=== PATIENT | female | born 1980 | race Caucasian/White ===

== ENCOUNTER 2017-03-31 14:21 | Emergency (ER) | payer SELFPAY ==
[2017-03-31 14:50] VITALS: BP 118/71
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
== END 2017-03-31 16:15 | disposition home or self-care (01) ==
LOC: UCEAST 14:21
DX: S16.1XXA Strain of muscle, fascia and tendon at neck level, initial encounter (principal); V43.52XA Car driver injured in collision with other type car in traffic accident, initial encounter; Y92.410 Unspecified street and highway as the place of occurrence of the external cause
CPT/HCPCS: 72050; 99212; G0463

== ENCOUNTER 2018-01-14 11:44 | Emergency (ER) | payer BC, OTHER ==
[2018-01-14 12:19] VITALS: BP 122/75
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
[2018-01-14] MEDS ORDERED: NS 0.9% 1000 ML* 1,000 ML IV ONE (13:18)
== END 2018-01-14 13:50 | disposition short-term general hospital (02) ==
LOC: UCEAST 11:44
DX: R20.2 Paresthesia of skin (principal)
CPT/HCPCS: 99213; G0463

== ENCOUNTER 2018-01-14 14:04 | Emergency (ER) | payer BC ==
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
--- NOTE | 2018-01-14 16:48 | RAD ---
HISTORY: left face, arm, and leg numbness- evaluate for dem COMPARISONS: None TECHNIQUE: The following sequences were obtained of the cervical spine: Sagittal T1- and T2-weighted images, sagittal STIR images, axial T2 and gradient echo images. FINDINGS: BRAIN AND SPINAL CORD: The visualized spinal cord is normal in caliber, position, and signal intensity. The visualized portion of the brain is unremarkable. The cerebellar tonsils are normal in position. ALIGNMENT: There is straightening of the normal cervical lordosis. The alignment is otherwise normal. VERTEBRAL BODIES: The bones are normal in signal intensity. JOINTS: There is no subluxation or dislocation. MUSCULATURE: Unremarkable. INTERVERTEBRAL DISCS: There is diffuse loss of intervertebral disc height and T2 signal throughout the cervical spine with relative sparing of C7-T1.. AXIAL IMAGES: C2-C3: There is no disc herniation, spinal stenosis, or neuroforaminal narrowing. C3-C4: There is no disc herniation, spinal stenosis, or neuroforaminal narrowing. C4-C5: There is no disc herniation, spinal stenosis, or neuroforaminal narrowing. C5-C6: There is broad-based disc osteophyte complex. There is no significant neural foraminal narrowing of central canal stenosis. C6-C7: There is right paracentral disc protrusion measuring 0.3 cm in depth. There is mild bilateral neuroforaminal narrowing. There is no significant central canal stenosis. C7-T1: There is mild disc bulge. There is no significant neural foraminal narrowing of central canal stenosis. SOFT TISSUES: The visualized soft tissues of the neck are unremarkable. OTHER: Normal flow-voids are noted within the vertebral arteries bilaterally on the gradient echo images. IMPRESSION: STRAIGHTENING OF THE CERVICAL LORDOSIS. MILD DEGENERATIVE DISC DISEASE AND OSTEOARTHRITIS. THERE IS NO SIGNIFICANT CENTRAL CANAL STENOSIS. THERE IS NO BONE OR SOFT TISSUE EDEMA TO SUGGEST ACUTE INJURY
[2018-01-14 17:01] LABS: ABS Basophils 0 10^3/ul (0-0.2); ABS Eosinophils 0.1 10^3/ul (0-0.6); ABS Lymphocytes 1.4 10^3/ul (1.0-4.8); ABS Monocytes 0.3 10^3/ul (0-0.8); ABS Neutrophils 4.8 10^3/ul (1.5-7.7); ABS Nucleated RBC 0 10^3/ul; Eosinophil % 1.1 % (0-6); Hematocrit 35 % (35-47); Hemoglobin 11.7 g/dl (12.0-16.0); Lymphocyte % 20.7 % (25-47); Mean Corpuscular HGB Conc 33 g/dl (31-36); Mean Corpuscular Hemoglobin 27 pg (27-31); Mean Corpuscular Volume 82 fL (80-97); Mean Platelet Volume 8.7 um3 (7.4-10.4); Nucleated Red Blood Cells % 0.1; Platelet Count 238 10^3/ul (150-450); Red Blood Count 4.29 10^6/ul (4.00-5.40); Red Cell Distribution Width 15 % (10.5-15); White Blood Count 6.6 10^3/ul (3.5-10.8)
--- NOTE | 2018-01-14 17:11 | ED ---
Progress - Results/Orders Results/Orders: MRI Cervical Spine Interpreted by radiologist IMPRESSION: STRAIGHTENING OF THE CERVICAL LORDOSIS. MILD DEGENERATIVE DISC DISEASE AND OSTEOARTHRITIS. THERE IS NO SIGNIFICANT CENTRAL CANAL STENOSIS. THERE IS NO BONE OR SOFT TISSUE EDEMA TO SUGGEST ACUTE INJURY Dr. Pagan has reviewed this report Course/Dx - Diagnoses Provider Diagnoses: Paresthesias - Provider Notifications Time Discussed With Above Provider: 14:45 Instructed by Provider To: MD Will See In ED - After evaluation Dr. Leslie recommends an MRI of the C-spine. Discharge - Sign-Out/Discharge Documenting (check all that apply): Patient Departure - discharge - Discharge Plan Condition: Stable Disposition: HOME Patient Education Materials: Paresthesia (ED) Referrals: Curtis Young MD [Primary Care Provider] - Maria Isabel Leslie MD [Medical Doctor] - 2 Days Additional Instructions: Follow up with Dr. Leslie, neurologist, in 2-3 days. Return to the emergency department with any new or worsening symptoms. - Attestation Statements Document Initiated by Scribe: Yes Documenting Scribe: Laury Frey Provider For Whom Scribe is Documenting (Include Credential): Ar Pagan MD Scribe Attestation: Laury Sanchez, scribed for Ar Pagan MD on 01/14/18 at 1730.
[2018-01-14 17:17] LABS: EGFR Non-African American 95.2 (>60)
[2018-01-14 17:42] VITALS: BP 130/98
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
--- NOTE | 2018-01-15 08:37 | CONSULT ---
Consult Consult: This is an addendum to my consult note. Correction needs to be made regarding the vitamin B12 level. The B12 level is within the lower limits of normal. The vitamin D level is slightly low as well. I contacted the patient and left her a message. I informed her that she should take cyanocobalamin 1,000 mcg and vitamin D supplementation 2,000 IU daily. She should establish a follow-up with Dr. Armando in 3-4 weeks.
== END 2018-01-14 17:41 | disposition home or self-care (01) ==
LOC: ED 14:04
DX: R20.2 Paresthesia of skin (principal); M50.323 Other cervical disc degeneration at C6-C7 level; M47.812 Spondylosis without myelopathy or radiculopathy, cervical region; M50.223 Other cervical disc displacement at C6-C7 level
CPT/HCPCS: 36415; 72141; 80053; 82306; 82607; 84439; 84443; 85025; 99282